=== PATIENT | male | born 1965 | race Caucasian/White ===

== ENCOUNTER 2020-10-23 16:26 | Inpatient (IN) ==
[2020-10-23] MEDS ORDERED: ASPIRIN CHEW 324 MG PO STA (16:39)
[2020-10-23] MEDS ORDERED: NITROGLYCERIN 2% OINTMENT 30GM TUBE EXT STA (16:39)
--- NOTE | 2020-10-23 16:45 | Emergency Department Note ---
History of Present Illness General Chief complaint: Chest Pain Stated complaint: CHEST PAIN Time Seen by Provider: 10/23/20 16:33 Source: patient and family Limitations: language barrier ( is translating from Guinean) History of Present Illness Provider complaint: Chest pain Onset (ago): hour(s) less than 1 Location: chest and left Radiation: other (Jaw) Severity: mild Pain Consistency: + constant Maximum Pain Intensity: 7 Quality: + other (Pressure) Relieved By: + none Exacerbated By: + other (Exertion) Associated symptoms: + nausea/vomiting and + shortness of breath; no cough or no fever/chills This is a 54-year-old male with a history of valvular heart disease presenting with chest discomfort starting 30 minutes prior to arrival. The patient was not doing anything in particular. He developed left-sided chest pressure which radiates into his jaw bilaterally. He states it is mostly gone at this time. He has associated shortness of breath and he did vomit once. He has had similar pain in the past. He had an episode about a month and a half ago with left- sided pain going into his arm but he did not get evaluated for it. He does state that he occasionally gets some slight chest pressure when he lifts things. He denies any fever, cough or cold symptoms, abdominal pain, diarrhea, or urinary symptoms. Home Medications Medication Instructions Recorded Confirmed Type No Known Home Medications 07/23/18 10/23/20 History Allergies Allergy/AdvReac Type Severity Reaction Status Date / Time bee venom protein (honey bee) AdvReac Severe Unknown Verified 10/23/20 16:54 Past Med/Surg History Medical History (Updated 10/23/20 @ 18:39 by Beckie Thapa PA-C) Aortic stenosis due to bicuspid aortic valve Ascending aortic aneurysm 4.5cm in Apr 2020 Hepatitis C Valvular heart disease Surgical History (Updated 10/23/20 @ 18:39 by Beckie Thapa PA-C) H/O eye surgery History of appendectomy Family History (Updated 10/23/20 @ 18:41 by Beckie Thapa PA-C) Other Cancer Diabetes Social History (Updated 10/23/20 @ 18:42 by Beckie Thapa PA-C) Smoking Status: Never smoker Hx Alcohol Use: No Hx Substance Use: No Preferred Language: Guinean Feels Safe at Home: Yes Review of Systems See HPI for pertinent positives & negatives. and A total of 10 systems reviewed and were otherwise negative Physical Exam Vital Signs Vital Signs - 24 hr 10/23/20 16:26 10/23/20 17:00 10/23/20 17:30 Temperature 36.1 C L Temperature Source Temporal Artery Scan Pulse Rate 75 53 L 56 L Pulse Rate [Apical] Pulse Rhythm [Apical] Pulse Strength [Apical] Respiratory Rate 18 14 14 Respiratory Effort / Characteristics Respiratory Depth Blood Pressure 132/87 130/89 138/92 Blood Pressure [Left Arm] Blood Pressure Mean 102 102 107 Blood Pressure Mean [Left Arm] Blood Pressure Position [Left Arm] Pulse Oximetry 98 96 99 Oxygen Delivery Method Room Air Sepsis Recent Fever Within 48 Hours No Sepsis New/Unexplained Change in Mental Status N/A Sepsis Action Taken by Nursing No Action Required 10/23/20 18:00 10/23/20 18:26 10/23/20 18:30 Temperature Temperature Source Pulse Rate 59 L 57 L 61 Pulse Rate [Apical] Pulse Rhythm [Apical] Pulse Strength [Apical] Respiratory Rate 21 14 15 Respiratory Effort / Characteristics Respiratory Depth Blood Pressure 138/88 130/88 127/87 Blood Pressure [Left Arm] Blood Pressure Mean 104 102 100 Blood Pressure Mean [Left Arm] Blood Pressure Position [Left Arm] Pulse Oximetry 98 99 96 Oxygen Delivery Method Sepsis Recent Fever Within 48 Hours Sepsis New/Unexplained Change in Mental Status Sepsis Action Taken by Nursing 10/23/20 19:00 Temperature Temperature Source Pulse Rate Pulse Rate [Apical] 53 L Pulse Rhythm [Apical] Regular Pulse Strength [Apical] Normal Respiratory Rate 20 Respiratory Effort / Characteristics Non-Labored Spontaneous Respiratory Depth Normal Blood Pressure Blood Pressure [Left Arm] 116/82 Blood Pressure Mean Blood Pressure Mean [Left Arm] 93 Blood Pressure Position [Left Arm] Sitting Pulse Oximetry 98 Oxygen Delivery Method Room Air Sepsis Recent Fever Within 48 Hours Sepsis New/Unexplained Change in Mental Status Sepsis Action Taken by Nursing Constitutional: Vital signs reviewed. Eyes: Pupils are equal round reactive to light. Conjunctiva are noninjected. ENT: Pharynx is clear without erythema or exudate. Mucous membranes are moist. Neck supple without meningeal signs. Respiratory: Clear to auscultation bilaterally. Breath sounds are equal bilaterally. Cardiovascular: Regular rate and rhythm. No rubs or gallops. GI: Soft, nondistended and nontender. Bowel sounds are present. Musculoskeletal: No peripheral edema. No lower extremity tenderness. Integumentary: No cyanosis. or jaundice. Neurological: The patient is awake and alert. No focal deficits. Psychiatric: Normal affect. Course Administered Medications Discontinued Medications Acetaminophen (Acetaminophen 325 Mg Tab) 650 mg PO NOW STA Stop: 10/23/20 17:41 Last Admin: 10/23/20 17:43 Dose: 650 mg Documented by: [id number] Aspirin (Aspirin Chew 324 Mg) 324 mg PO NOW STA Stop: 10/23/20 16:40 Last Admin: 10/23/20 17:00 Dose: 324 mg Documented by: [id number] Sodium Chloride (Nss 1000ml) 500 mls @ 999 mls/hr IV .Q31M ONE Stop: 10/23/20 17:31 Last Infusion: 10/23/20 17:38 Dose: 0 mls/hr Documented by: [id number] Admin: 10/23/20 17:06 Dose: 999 mls/hr Documented by: [id number] Nitroglycerin (Nitroglycerin 2% Ointment 30gm Tube) 0.5 inch EXT NOW STA Stop: 10/23/20 16:40 Last Admin: 10/23/20 17:00 Dose: 0.5 inch Documented by: [id number] Ondansetron HCl (Ondansetron Inj 2 Mg/Ml 2 Ml Vial) 4 mg IV NOW STA Stop: 10/23/20 18:36 Last Admin: 10/23/20 19:02 Dose: 4 mg Documented by: [id number] Medical Decision Making Differential Diagnosis Unstable angina, CT, pleurisy, GERD, pneumonia Medical Records Attestation: I reviewed the patient's medical records. I did perform a limited focused review of portions of the patient's old chart on the electronic medical record. The patient has had no recent pertinent visits to this hospital. Home Medications Current Medication List: was personally reviewed by me Laboratory Data Attestation: I reviewed the patient's lab results. Result diagrams: 10/23/20 16:56 10/23/20 16:56 Lab Results 10/23/20 10/23/20 10/23/20 Range/Units 16:56 16:56 16:56 WBC 8.29 (4.8-10.8) K/uL RBC 4.64 L (4.7-6.1) M/uL Hgb 15.3 (14.0-18.0) g/dL Hct 43.3 (42-52) % MCV 93.3 (80-100) fL MCH 33.0 (25-34) pg MCHC 35.3 (32-36) g/dL RDW Std Deviation 44.5 (36.4-46.3) fL RDW Coeff of Dixie 12.9 (11.5-14.5) % Plt Count 199 (130-400) K/uL MPV 9.8 (7.4-10.4) fL Immature Gran % (Auto) 0.1 % Neut % (Auto) 52.2 % Lymph % (Auto) 41.1 % Mckinley % (Auto) 5.7 % Eos % (Auto) 0.7 % Baso % (Auto) 0.2 % Neut # (Auto) 4.32 (1.4-6.5) K/uL Lymph # (Auto) 3.41 H (1.2-3.4) K/uL Mckinley # (Auto) 0.47 (0.11-0.59) K/uL Eos # (Auto) 0.06 (0-0.5) K/uL Baso # (Auto) 0.02 (0-0.2) K/uL Immature Gran # (Auto) 0.01 (0.00-0.02) K/uL Sodium 141 (136-145) mmol/L Potassium 3.8 (3.5-5.1) mmol/L Chloride 108 H (98-107) mmol/L Carbon Dioxide 27 (21-32) mmol/L Anion Gap 7.0 (3-11) BUN 19 H (7-18) mg/dl Creatinine 0.89 (0.6-1.4) mg/dl Est Cr Clr Drug Dosing Not Reportable Est GFR ( Amer) 113.9 ml/min Est GFR (Non-Af Amer) 98.3 ml/min BUN/Creatinine Ratio 21.7 H (10-20) Glucose 98 (70-99) mg/dl Calcium 8.8 (8.5-10.1) mg/dl Total Bilirubin 0.5 (0.2-1) mg/dl AST 15 (15-37) U/L ALT 26 (12-78) U/L Alkaline Phosphatase 66 (45-117) U/L Troponin I < 0.015 (0-0.045) ng/ml Total Protein 7.3 (6.4-8.2) gm/dl Albumin 3.8 (3.4-5.0) gm/dl Globulin 3.5 (2.5-4.0) gm/dl Albumin/Globulin Ratio 1.1 (0.9-2) COVID-19 Eval Order Covid19 at [facility] SARS-CoV-2 (PCR) (Negative) 10/23/20 Range/Units 16:56 WBC (4.8-10.8) K/uL RBC (4.7-6.1) M/uL Hgb (14.0-18.0) g/dL Hct (42-52) % MCV (80-100) fL MCH (25-34) pg MCHC (32-36) g/dL RDW Std Deviation (36.4-46.3) fL RDW Coeff of Dixie (11.5-14.5) % Plt Count (130-400) K/uL MPV (7.4-10.4) fL Immature Gran % (Auto) % Neut % (Auto) % Lymph % (Auto) % Mckinley % (Auto) % Eos % (Auto) % Baso % (Auto) % Neut # (Auto) (1.4-6.5) K/uL Lymph # (Auto) (1.2-3.4) K/uL Mckinley # (Auto) (0.11-0.59) K/uL Eos # (Auto) (0-0.5) K/uL Baso # (Auto) (0-0.2) K/uL Immature Gran # (Auto) (0.00-0.02) K/uL Sodium (136-145) mmol/L Potassium (3.5-5.1) mmol/L Chloride (98-107) mmol/L Carbon Dioxide (21-32) mmol/L Anion Gap (3-11) BUN (7-18) mg/dl Creatinine (0.6-1.4) mg/dl Est Cr Clr Drug Dosing Est GFR ( Amer) ml/min Est GFR (Non-Af Amer) ml/min BUN/Creatinine Ratio (10-20) Glucose (70-99) mg/dl Calcium (8.5-10.1) mg/dl Total Bilirubin (0.2-1) mg/dl AST (15-37) U/L ALT (12-78) U/L Alkaline Phosphatase (45-117) U/L Troponin I (0-0.045) ng/ml Total Protein (6.4-8.2) gm/dl Albumin (3.4-5.0) gm/dl Globulin (2.5-4.0) gm/dl Albumin/Globulin Ratio (0.9-2) COVID-19 Eval Order SARS-CoV-2 (PCR) NEGATIVE (Negative) Imaging Data Attestation: I personally reviewed and interpreted this imaging study as follows: My Impression: Chest x-ray per my interpretation shows no acute cardiopulmonary process. Radiologist's Impression: Chest X-Ray 10/23/20 16:39 SINGLE VIEW CHEST CLINICAL HISTORY: Atypical chest pain. FINDINGS: An AP, portable, upright chest radiograph is obtained. No prior studies are available for comparison at the time of dictation. The heart is top normal for projection. The mediastinal contour is within normal limits. The lungs and pleural spaces are clear. No pneumothorax is seen. The bony thorax is grossly intact. IMPRESSION: No acute cardiopulmonary abnormality. ACT 112: Negative or not required by law. Electronically signed by: Kehinde Remy M.D. 10/23/2020 5:48 PM ECG Data Attestation: I personally reviewed and interpreted this ECG as follows: Indication: + chest pain Rate (beats per minute): 57 Rhythm: + sinus bradycardia ECG [place]: + Normal ECG ST segments: no ST elevation ECG Findings: no PVCs Comparison ECG Date: no prior available Additional Comments: Repeat twelve-lead EKG performed 1658 per my interpretation demonstrates sinus bradycardia at rate of 56 bpm. There is no evidence of acute ST elevation or depression. [place] is normal. No PVCs. No change from prior. MDM Narrative I did evaluate the patient as noted above. Patient is presenting with chest pressure starting 30 minutes prior to arrival. He states he has had similar pressure in the past but has not been evaluated for. He states that he does get it when he exerts himself or lifts things. I did obtain history from the patient via his who is translating from Guinean. IV access was established. I did treat him with aspirin 324 mg p.o. and nitroglycerin paste 0.5 inches to the anterior chest wall. He was given normal saline 500 mL [address] I did place an order for continuous cardiac monitoring. The monitor showed normal sinus rhythm at a rate of 60 bpm. I did order and personally review the patient's 12-lead EKG as described above. He has sinus bradycardia but no acute ischemia. I did repeat another EKG approximately half hour later and there was no significant change as noted above. I did order and personally reviewed the images of the patient's chest x-ray as described above. Chest x-ray is unremarkable. I did order and review the patient's blood work as noted in the electronic medical record. CBC is unremarkable without leukocytosis or anemia. Electrolytes demonstrate a chloride of 108. Troponin is negative. I did reassess the patient. His chest pressure is now relieved. He does complain of a headache from the nitroglycerin. He was given Tylenol. I did discuss the test results with the patient and his . He will be hospitalized for further care and evaluation and repeat cardiac biomarkers. I did discuss the case with the hospitalist and case reviewer. Impression & Plan Chest pain Discharge Plan Visit Data Chief Complaint: Chest Pain Stated Complaint: CHEST PAIN ED Provider: Mickey Tapia Discharge Problem: Chest pain Patient Disposition: Being Evaluated by Hospitalist Forms Stand Alone Forms: TRUE linkswear Prescriptions Prescriptions: No Action No Known Home Medications RF: 0 Referrals Referrals: PCP,NO [Primary Care Provider] - Discharge Problem: Chest pain Qualifiers: Chest pain type: unspecified Qualified Code(s): R07.9 - Chest pain, unspecified
[2020-10-23] MEDS ORDERED: SODIUM CHLORIDE 0.9% 1000ML 500 ML IV ONE (17:01)
[2020-10-23 17:08] LABS: Basophils # (auto) 0.02 K/uL (0-0.2); Basophils % (auto) 0.2 %; Eosinophils # (auto) 0.06 K/uL (0-0.5); Eosinophils % (auto) 0.7 %; Hematocrit (blood only) 43.3 % (42-52); Hemoglobin 15.3 g/dL (14.0-18.0); Immature Granulocytes # (auto) 0.01 K/uL (0.00-0.02); Immature Granulocytes % (auto) 0.1 %; Lymphocytes # (auto) 3.41 K/uL (1.2-3.4); Lymphocytes % (auto) 41.1 %; Mean Corpuscular Hgb Conc 35.3 g/dL (32-36); Mean Corpuscular Volume 93.3 fL (80-100); Mean Platelet Volume 9.8 fL (7.4-10.4); Monocytes # (auto) 0.47 K/uL (0.11-0.59); Monocytes % (auto) 5.7 %; Neutrophils # (auto) 4.32 K/uL (1.4-6.5); Neutrophils % (auto) 52.2 %; Platelet Count 199 K/uL (130-400); RDW Coefficient of Variation 12.9 % (11.5-14.5); RDW Standard Deviation 44.5 fL (36.4-46.3); Red Blood Count 4.64 M/uL (4.7-6.1); White Blood Count 8.29 K/uL (4.8-10.8)
[2020-10-23 17:26] LABS: Alanine Aminotransferase 26 U/L (12-78); Albumin Level 3.8 gm/dl (3.4-5.0); Aspartate Aminotransferase 15 U/L (15-37); BUN Creatinine Ratio 21.7 (10-20); Blood Urea Nitrogen 19 mg/dl (7-18); Calcium 8.8 mg/dl (8.5-10.1); Carbon Dioxide 27 mmol/L (21-32); Chloride 108 mmol/L (98-107); Est GFR (African American) 113.9 ml/min; Est GFR (Non-African American) 98.3 ml/min; Glucose 98 mg/dl (70-99); Potassium 3.8 mmol/L (3.5-5.1); Sodium 141 mmol/L (136-145)
[2020-10-23 17:31] LABS: Albumin Globulin Ratio 1.1 (0.9-2); Alkaline Phosphatase 66 U/L (45-117); Bilirubin,Total 0.5 mg/dl (0.2-1); Globulin 3.5 gm/dl (2.5-4.0); Total Protein 7.3 gm/dl (6.4-8.2); Troponin I < 0.015 ng/ml (0-0.045)
[2020-10-23] MEDS ORDERED: ACETAMINOPHEN 325 MG TAB PO STA (17:40)
--- NOTE | 2020-10-23 17:49 | XRay Report ---
SINGLE VIEW CHEST CLINICAL HISTORY: Atypical chest pain. FINDINGS: An AP, portable, upright chest radiograph is obtained. No prior studies are available for c omparison at the time of dictation. The heart is top normal for projection. The mediastinal contour is within normal limits. The lungs and pleural spaces are clear. No pneumothorax is seen. The bony th orax is grossly intact. IMPRESSION: No acute cardiopulmonary abnormality. ACT 112: Negative or not required by law. Electronically signed by: Kehinde Remy M.D. 10/23/2020 5:48 PM
[2020-10-23] MEDS ORDERED: ONDANSETRON INJ 2 MG/ML 2 ML VIAL IV STA (18:35)
[2020-10-23] MEDS ORDERED: OPTIRAY 320 125ml IV ONE (19:30)
--- NOTE | 2020-10-23 19:45 | CT Scan Report ---
CT ANGIOGRAM OF THE CHEST CLINICAL HISTORY: Atypical chest pain. COMPARISON STUDY: Chest x-ray dated 10/23/2020. TECHNIQUE: Following the IV administration of 120 cc of Optiray 320, CT angiogram of the chest was pe rformed from the thoracic inlet to the upper abdomen utilizing the dissection protocol. Images are re viewed in the axial, sagittal, and coronal planes. 3-D MIPS images are created and assessed. IV contr ast was administered without complication. A dose lowering technique was utilized adhering to the pr inciples of ALARA. CT DOSE: 573.13 mGy.cm FINDINGS: Thyroid: Imaged portions of the thyroid gland are normal in size and attenuation. Thoracic aorta: There is mild aneurysmal dilatation of the ascending thoracic aorta which measures up to 4.2 cm in diameter. The remainder of the thoracic aorta is normal in caliber, and the arch demons trates standard 3-vessel anatomy. No dissection is seen. The arch vessels are widely patent. Pulmonary vasculature: The pulmonary trunk is normal in caliber. There are no filling defects within the main, lobar, or segmental pulmonary arteries to suggest pulmonary embolus. Heart: The heart is top normal in size and without pericardial effusion. Lungs and pleural spaces: Evaluation of the lung parenchyma is modestly degraded by motion artifact. There is no airspace consolidation or pleural effusion. Atelectasis is seen at the lung bases. The tr achea and central airways are clear. Mediastinum: There is no mediastinal lymphadenopathy. Pati: Clear. Axillae: There is no axillary lymphadenopathy. Upper abdomen: There is a tiny hiatal hernia. Partially visualized upper abdominal viscera is within normal limits. Skeletal structures: No lytic or blastic bony lesions are seen. IMPRESSION: 1. There is mild aneurysmal dilatation of the ascending thoracic aorta which measures up to 4.2 cm in diameter. 2. No dissection is seen. 3. There is no evidence of pulmonary embolus in the main, lobar, or segmental pulmonary arteries. 4. There is no airspace consolidation or pleural effusion. 5. Additional findings as above. ACT 112: Negative or not required by law. Electronically signed by: Kehinde Remy M.D. 10/23/2020 7:44 PM
[2020-10-23] MEDS ORDERED: ONDANSETRON INJ 2 MG/ML 2 ML VIAL IV PRN (19:55)
[2020-10-23] MEDS ORDERED: POLYETHYLENE (MIRALAX) 17 GM PACK PO PRN (19:55)
[2020-10-23] MEDS ORDERED: NITROGLYCERIN SL 0.4 MG/TAB TAB SL PRN (19:55)
[2020-10-23] MEDS ORDERED: ACETAMINOPHEN 325 MG TAB PO PRN (19:55)
--- NOTE | 2020-10-23 20:28 | History & Physical Report ---
Date of Service October 23, 2020 Assessment & Plan (1) Chest pain: (2) Ascending aortic aneurysm: Plan: #. Chest pain rule out ACS Chief complaint was chest heaviness waking him up from sleep in the afternoon. He had similar complaints in the past which would worsen with exertion. Likely unstable angina secondary to noncompliance. Admitting EKG showed sinus bradycardia with heart rate in 57, troponin x1 was negative Trend the troponin, EKG in a.m. or with chest pain/heaviness Discussed with cardiology: CT chest sent to rule out PE/aortic dissection--> came back negative. We will put him on aspirin daily and Zofran as needed N.p.o. midnight #. History of ascending aortic aneurysm/bicuspid aortic valve April echo showed mild to moderate stenosis of calcified bicuspid aortic valve. Follow-up with echo results. Cardiology on board. Admission and Anticipated Discharge Date Admission Date: October 23, 2020 History of Present Illness Chief Complaint: chest heaviness x afternoon Primary Care Provider: NO PCP 54-year-old gentleman with PMH of unstable angina [prescribed aspirin, not taking it], ascending aortic aneurysm [4.5 cm April 2020], bicuspid aortic valve x calcified, and hepatitis C status post treatment came in 10/23 to ED with complaint of chest heaviness. Per patient, he woke up around 4 PM with chest heaviness with some chest pain, 8-9 out of 10 intensity, associated with left forearm and hand numbness, associated with nausea/vomiting [2 times]. He states that his pain slowly subsided with good relief after nitroglycerin in the ED. At bedside, his chest heaviness was 0/10. Patient also complains of having similar symptoms in the past since last 3 to 4 years. The frequency has increased lately to once every 2 months. He has been diagnosed with unstable angina in the past and was prescribed aspirin with he has not taken. His echo in April 2020 showed ejection fraction of 60 to 65% with bicuspid aortic valve showing mild to moderate aortic stenosis. Per patient, he does not smoke tobacco, drink alcohol and use illegal drugs/marijuana. He is full code. Family history positive for GI malignancy. In the ED, he received nitro patch, aspirin 324 mg, Tylenol, Zofran. Allergies Allergy/AdvReac Type Severity Reaction Status Date / Time bee venom protein (honey bee) AdvReac Severe Unknown Verified 10/23/20 16:54 Home Medications Medication Instructions Recorded Confirmed Type No Known Home Medications 07/23/18 10/23/20 History Past Med/Surg History Medical History (Updated 10/23/20 @ 18:39 by Beckie Thapa PA-C) Aortic stenosis due to bicuspid aortic valve Ascending aortic aneurysm 4.5cm in Apr 2020 Hepatitis C Valvular heart disease Surgical History (Updated 10/23/20 @ 18:39 by Beckie Thapa PA-C) H/O eye surgery History of appendectomy Family History (Updated 10/23/20 @ 18:41 by Beckie Thapa PA-C) Other Cancer Diabetes Social History (Updated 10/23/20 @ 18:42 by eBckie Thapa PA-C) Smoking Status: Never smoker Hx Alcohol Use: No Hx Substance Use: No Preferred Language: Angolan Communication Ability: Effective [employer] Required: Yes Beliefs That Will Affect Care: None Current Living Situation: Spouse Other Information That Helps Us Care for You: No Feels Safe at Home: Yes Safety Concerns: Feels Safe At This Time Review of Systems Review of Systems: REVIEW OF SYSTEMS: All 10 ROS were reviewed and negative unless mentioned otherwise in the HPI. No headache, fever, chills, sore throat, feeling of heart racing, belly pain, acute changes in bowel or bladder habits lately, bilateral lower leg swelling, skin rashes, bleeding anywhere in the body. Patient complaints being sick at his stomach on and off with chest heaviness associated with nausea and vomitin.g Physical Exam Physical Exam: GENERAL: Alert and oriented x3. NAD, on RA. HEENT: No pallor, no icterus. Pupils equal, round and reactive to light. Oral mucosa moist. NECK: No JVD, no neck masses. HEART: S1 and S2 heard. Regular rate and rhythm. Midsystolic murmur 3/6 over aortic and pulmonic area, no gallop. RESPIRATORY SYSTEM: Normal AP diameter. No accessory muscle use. No wheezing, no crackles. ABDOMEN: Soft, bowel sounds present, nontender, no distention. CENTRAL NERVOUS SYSTEM: Alert and oriented x3. No facial droop. Speech is clear. Obeys simple commands. Moves extremities. EXTREMITIES: No edema, no erythema seen. Results & Data Results & Data ([facility]) Vital Signs (Past 12 Hours) Vital Signs Temp Pulse Pulse Resp BP BP Pulse Ox 10/23/20 19:45 18 119/76 93 10/23/20 19:00 53 L 20 116/82 98 10/23/20 18:30 61 15 127/87 96 10/23/20 18:26 57 L 14 130/88 99 10/23/20 18:00 59 L 21 138/88 98 10/23/20 17:30 56 L 14 138/92 99 10/23/20 17:00 53 L 14 130/89 96 10/23/20 16:26 36.1 C L 75 18 132/87 98 (1) Chest pain Chest pain type: unspecified Qualified Code(s): R07.9 - Chest pain, unspecified
[2020-10-23] MEDS: HEPARIN SOD 5,000 UNIT/0.5 ML VIAL SQ SCH (23:25)
[2020-10-24 06:39] LABS: Mean Corpuscular Hemoglobin 32.5 pg (25-34); Mean Corpuscular Volume 92.8 fL (80-100); Platelet Count 180 K/uL (130-400); RDW Coefficient of Variation 12.9 % (11.5-14.5); RDW Standard Deviation 44.2 fL (36.4-46.3); Red Blood Count 4.31 M/uL (4.7-6.1); White Blood Count 8.15 K/uL (4.8-10.8)
[2020-10-24 07:15] LABS: BUN Creatinine Ratio 21.3 (10-20); Blood Urea Nitrogen 15 mg/dl (7-18); Calcium 8.3 mg/dl (8.5-10.1); Carbon Dioxide 25 mmol/L (21-32); Chloride 110 mmol/L (98-107); Creatinine Clr Calc Pharmacy 147.9 ml/min; Est GFR (African American) 123.6 ml/min; Est GFR (Non-African American) 106.6 ml/min; Glucose 102 mg/dl (70-99); Potassium 3.8 mmol/L (3.5-5.1); Sodium 140 mmol/L (136-145)
[2020-10-24 07:20] LABS: Chol HDL Ratio 5; Cholesterol 188 mg/dl (0-200); HDL Cholesterol 40 mg/dl; LDL Cholesterol Calculated 128 mg/dl; Triglycerides 102 mg/dl (0-150); Troponin I < 0.015 ng/ml (0-0.045); VLDL Cholesterol 20 mg/dl
[2020-10-24 08:00] LABS: Estimated Average Glucose 117 mg/dl; Hemoglobin A1C 5.7 % (4.5-5.6)
[2020-10-24] MEDS: HEPARIN SOD 5,000 UNIT/0.5 ML VIAL SQ SCH ×2 (08:34→12:27)
[2020-10-24] MEDS: ASPIRIN 81 MG ECTAB PO SCH (09:19)
[2020-10-24] MEDS ORDERED: MECLIZINE 12.5 MG TAB PO PRN (09:38)
--- NOTE | 2020-10-24 10:16 | CT Scan Report ---
CT SCAN OF THE BRAIN WITHOUT IV CONTRAST CLINICAL HISTORY: Headache and dizziness. COMPARISON STUDY: No priors. TECHNIQUE: Unenhanced axial CT scan of the brain is performed from the vertex to the skull base. A d ose lowering technique was utilized adhering to the principles of ALARA. CT DOSE: 537.48 mGy.cm FINDINGS: Brain parenchyma: The brain parenchyma is normal in appearance. There is no hemorrhage, mass effect, or evidence of acute territorial ischemia by CT criteria. Hooper-white matter differentiation is preser harman. No extra-axial fluid collection is seen. Ventricles, sulci, cisterns: Normal in configuration. Intracranial vasculature: The visualized intracranial vasculature at the skull base is normal in appe arance. Calvarium: Unremarkable. Sinuses and mastoids: The visualized paranasal sinuses are clear. There is trace left mastoid effusio n. The right mastoid air cells are well pneumatized. Orbits: The bony orbits are grossly intact. IMPRESSION: No acute intracranial abnormality. ACT 112: Negative or not required by law. Electronically signed by: Kehinde Remy M.D. 10/24/2020 10:15 AM
--- NOTE | 2020-10-24 10:17 | Hospitalist Progress Note ---
Date of Service October 24, 2020 Assessment & Plan (1) Chest pain: Plan: Chest pain Possible Unstable Angina ACS ruled out --- troponin x 3 negative EKG no signs of acute ischemia, (+) sinus rudolph Echo pending -- Presales Engineer consulted -- CT chest: no PE, Dissection ESR, CRP: pending Dizziness, possible Vertigo -- CT head: pending -- PRN Meclizine IV NSS -- PT ordered for Midland-Hallpike test History of AAA -- CT chest no dissection Bicuspid AV -- Echo pending History of Hep C Disposition pending plan of care discussed with patient and his Veronica at the bedside in detail and at length all questions answered they are understanding, agreeable, comfortable with the plan of care Admission and Anticipated Discharge Date Admission Date: October 23, 2020 Subjective ff up for chest pain, etc seen resting in bed, not in distress reports left sided chest pain- sharp with inspiration and movement also reports dizziness with head movement and when ambulating- reminiscent of intermittent episode of dizziness in the past- "room spinning" associated with nausea also has bitemporal headache-mild to moderate no other symptoms Review of Systems Review of Systems: all noted and negative except for above Physical Exam Physical Exam: General- oriented x 3, not in distress, speaks in sentences with no effort or accessory muscle use Head- atraumatic Eyes- PERRL, EOMI, anicteric ENT- oropharynx clear Neck- supple, no JVD, no adenopathy, no thyromegaly; carotids +2/2, no bruits appreciated Lungs- clear to auscultation bilaterally, no rales/wheezes Heart- normal rate, regular rhythm; no murmur, no gallop, no rub appreciated (+) tenderness to palpation of Left parasternal border Abdomen- normal bowel sounds, nondistended, soft, nontender, no masses or hepatosplenomegaly Extremities- no pretibial edema, no calf tenderness; peripheral pulses intact Neuro- alert, oriented x 3; CN 2-12 grossly intact; motor 5/5 moustapha aterally;sensation 100% on all extremities; no other gross focal neurologic deficits Skin- warm & dry Results & Data Results & Data ([facility]) Vital Signs (Past 12 Hours) Vital Signs Temp Pulse Pulse Resp BP Pulse Ox 10/24/20 10:01 62 10/24/20 07:15 36.7 C 57 L 18 114/67 97 10/24/20 03:17 36.6 C 60 18 105/59 L 97 10/24/20 00:00 90 10/23/20 23:15 36.5 C 89 18 116/57 L 95 all noted and reviewed including below (1) Chest pain Chest pain type: unspecified Qualified Code(s): R07.9 - Chest pain, unspecified
--- NOTE | 2020-10-24 12:18 | Pre Anesthesia Assessment ---
Date of Service October 24, 2020 Pre Sedation Assessment Vital Signs Temp Pulse Pulse Resp BP BP Pulse Ox 10/24/20 11:00 36.5 C 56 L 17 108/67 98 10/24/20 10:01 62 10/24/20 07:15 36.7 C 57 L 18 114/67 97 10/24/20 03:17 36.6 C 60 18 105/59 L 97 10/24/20 00:00 90 10/23/20 23:15 36.5 C 89 18 116/57 L 95 10/23/20 19:45 18 119/76 93 10/23/20 19:00 53 L 20 116/82 98 10/23/20 18:30 61 15 127/87 96 10/23/20 18:26 57 L 14 130/88 99 10/23/20 18:00 59 L 21 138/88 98 10/23/20 17:30 56 L 14 138/92 99 10/23/20 17:00 53 L 14 130/89 96 10/23/20 16:26 36.1 C L 75 18 132/87 98 Cardiovascular + regular rate Respiratory + respiratory effort normal Pre-Sedation Airway Assessment Smoking Status: Never smoker Hx Sleep Apnea: No Hx Difficult Intubation: No Short, Thick Neck: No Thyromental Distance: > or= 3.5 Finger Breadths Oral Cavity: + WNL Mallampati Class: III ASA: ASA3 Procedure Planning Contraindications for Sedation: none Current Medications Reviewed: Yes Notes The planned sedation has been discussed with the patient. Informed Consent was obtained. I have identified the patient, determined the appropriateness of sedation and have assessed the patient immediately prior to the procedure. All medicine(s) and interventions are by my order.
[2020-10-24] MEDS: NSS + 20MEQ KCL 20 MEQ/1,000 ML BAG IV SCH (12:19)
--- NOTE | 2020-10-24 12:25 | Cardiology Consultation ---
Date of Consultation October 24, 2020 Assessment & Plan (1) Chest pain: (2) Aortic stenosis due to bicuspid aortic valve: (3) Ascending aortic aneurysm: His initial work-up was unremarkable, however, there is subtle wall motion abnormalities on his resting echocardiogram. Given his recurrent episodes of chest discomfort and the echocardiographic findings I believe the most prudent course of action would be to proceed with cardiac catheterization for direct visualization of his anatomy. The patient and his both state that they understand and they are in agreement with this plan and wished to proceed. The risks, benefits and alternatives were discussed with him. Dr. Larsen was kind enough to agree to take him to the lab. Further recommendations to follow. History of Present Illness Reason for Consultation: Chest pain Requesting Physician: Dr. Simeon Attending Physician: Oseas Jackson MD History of Present Illness The patient is a pleasant 54-year-old Palauan-speaking only gentleman who follows with myself as an outpatient. He presented to [facility] on 10/23/2020 with complaints of chest discomfort. He prefers that his acts as lang interpreter. He states that yesterday afternoon he was not feeling well and went to lay down. He states he was nauseous and developed a headache. At the same time he became diaphoretic and short of breath. Along with this he developed chest discomfort. He described the discomfort as a pressure sensation as a heavy weight sitting on his chest. He denied any radiation of the discomfort. He states that the discomfort persisted for several hours before his was able to convince him to come in the emergency department. Upon arrival initial work-up was unremarkable and his chest discomfort was relieved with nitroglycerin. He is not had any further discomfort overnight. PAST MEDICAL HISTORY: 1. Bicuspid aortic valve with moderate stenosis 2. Ascending aortic aneurysm measuring 4.5 cm 3. History of hepatitis C status post antiviral drug therapy Allergies Allergy/AdvReac Type Severity Reaction Status Date / Time bee venom protein (honey bee) AdvReac Severe Unknown Verified 10/23/20 16:54 Home Medications Medication Instructions Recorded Confirmed Type No Known Home Medications 07/23/18 10/23/20 History Patient History Medical History Aortic stenosis due to bicuspid aortic valve Ascending aortic aneurysm 4.5cm in Apr 2020 Hepatitis C Valvular heart disease Surgical History H/O eye surgery History of appendectomy Family History Other Cancer Diabetes Social History Smoking Status: Never smoker Hx Alcohol Use: No Hx Substance Use: No Preferred Language: Palauan Communication Ability: Effective Communication Tools: IPad Electric Wirer Required: Yes Beliefs That Will Affect Care: None Current Living Situation: Spouse Other Information That Helps Us Care for You: No Feels Safe at Home: Yes Safety Concerns: Feels Safe At This Time Assistive Devices: None Review of Systems Review of Systems: All systems reviewed & are unremarkable except as noted in HPI & below Physical Exam Physical Exam: General: Awake, alert and oriented x 3. No acute distress. HEENT: Normocephalic, atraumatic. Pupils equal, round and reactive to light and accommodation. Extraocular muscles are intact. Anicteric sclera. Moist mucous membranes. Neck: No JVD. No bruit. Cardiovascular: Regular. Positive S-4. Normal S-1 and S-2. No S-3. 3/6 mid to late systolic ejection murmur, greatest at the right sternal border, second intercostal space with radiation to the bilateral carotids. No rubs. Pulmonary: Clear to auscultation bilaterally. No rales, rhonchi, or wheezing. Abdomen: Bowel sounds x 4, soft. No rebound, guarding or tenderness. No organomegaly. Extremities: No clubbing, cyanosis or edema. +2 pedal pulses bilaterally. Skin: Warm and dry. Results & Data ([facility]) Vital Signs (Past 12 Hours) Vital Signs Temp Pulse Pulse Resp BP Pulse Ox 10/24/20 11:00 36.5 C 56 L 17 108/67 98 10/24/20 10:01 62 10/24/20 07:15 36.7 C 57 L 18 114/67 97 10/24/20 03:17 36.6 C 60 18 105/59 L 97 (1) Chest pain Chest pain type: unspecified Qualified Code(s): R07.9 - Chest pain, unspecified
[2020-10-24] MEDS ORDERED: HEPARIN (PORCINE) 1000 UNIT/ML 10 ML (CATH LAB USE ONLY) ONE (13:05)
[2020-10-24] MEDS ORDERED: niCARdipine HCL INJ 2.5 MG/ML 10 ML AMP ONE (13:05)
[2020-10-24] MEDS ORDERED: NITROGLYCERIN/D5W 100MCG/ML 20ML SYR ONE (13:06)
[2020-10-24] MEDS ORDERED: MIDAZOLAM HCL 1 MG/ML 2ML VIAL ONE (13:06)
[2020-10-24] MEDS ORDERED: fentaNYL citrate 100 MCG/2 ML VIAL ONE (13:06)
--- NOTE | 2020-10-24 13:33 | Post Anesthesia Assessment ---
Date of Service October 24, 2020 Post Sedation Assessment Vital Signs Temp Pulse Pulse Resp BP BP Pulse Ox 10/24/20 11:00 36.5 C 56 L 17 108/67 98 10/24/20 10:01 62 10/24/20 07:15 36.7 C 57 L 18 114/67 97 10/24/20 03:17 36.6 C 60 18 105/59 L 97 10/24/20 00:00 90 10/23/20 23:15 36.5 C 89 18 116/57 L 95 10/23/20 19:45 18 119/76 93 10/23/20 19:00 53 L 20 116/82 98 10/23/20 18:30 61 15 127/87 96 10/23/20 18:26 57 L 14 130/88 99 10/23/20 18:00 59 L 21 138/88 98 10/23/20 17:30 56 L 14 138/92 99 10/23/20 17:00 53 L 14 130/89 96 10/23/20 16:26 36.1 C L 75 18 132/87 98 Recovery Score Activity: Moves 4 extremities Respiration: Deep Breath/Cough Circulation: +/-20% PreAnes Value Consciousness: Fully Awake Oxygen Saturation: > 92% On Room Air Discharge Sedation Level of Care: Fast Track Phase II Post Sedation Plan On clinical assessment, the patient appears to have tolerated the sedation without complications. Patient is recovering as anticipated. Patient will continue to be monitored by nursing and may be discharged when sedation discharge criteria are met per below protocol. Upon Completions of procedure up to 15 minutes continue every 5 minute vital signs and the P.A.R. score; then discharge to a Phase I or Fast Track to Phase II per the following guidelines: * Discharge Patient to appropriate Phase II area if PAR is 8 or greater or return to pre- procedure baseline. The post - procedure orders will be as directed. * If PAR score is less than 8 or not return to pre-procedure baseline then patient will follow Phase I monitoring till PAR is reached for Phase II. The Phase I may be done in procedure room or may call to secure a Phase I area. * If naloxone or flumazenil are used for reversal, hold in Phase I for continued monitoring from when last reversal dose was given for a minimum of 60 minutes or longer pending the nurse and/or physician discretion of patient condition before discharge to Phase II. Please call the Sedation Physician to re-evaluate and complete post-note for discharge to Phase II area. Do NOT discharge from procedure sedation or Phase 1 until post- sedation evaluation note is complete by procedure /sedation MD Sedation Discharge Instructions to be given to the patient at discharge to home.
--- NOTE | 2020-10-24 13:42 | Cardiac Catheterization ---
[facility] Data: Manager Mission Cardiac Status Clinical evaluation leading to the procedure CAD Presenation: Unstable angina Diagnostic Physicians Name: Param Larsen MD Closure Device Recommendations: Medical Therapy and/or Counseling Cardiac Cath Procedure Full Procedure Date October 24, 2020 Pre-Procedure Diagnosis Pre-Procedure Diagnosis: Angina AUC Score AUC Score: 7 Post-Procedure Diagnosis Post-Procedure Diagnosis: Mild CAD Procedure(s) Performed Procedure(s) Performed: Coronary Angiography and Left Heart Cath Cook Night Param Larsen MD Director Of Global Marketing(s) none Estimated Blood Loss Estimated Blood Loss: 7cc Medication(s) Medication(s): Fentanyl, Heparin, Lidocaine 1%, Nicardipine, Nitroglycerin and Versed Summary of Findings Procedure performed: Left heart catheterization, selective coronary angiography Staff silver wrapper: Param Larsen MD Indication: The patient is a 54-year-old gentleman with a history of chest discomfort relieved with nitroglycerin. Procedure in detail The patient was informed the risk benefits and alternatives to the intended procedure. He speaks limited Tristanian and this was facilitated using a proprietary clinical laboratory aides teacher. He understood and wished to proceed. He was taken to the cardiac catheterization suite in a fasting state. Conscious sedation was administered per protocol and the patient was monitored electrocardiographically throughout today's procedure. The right radial area was prepped and draped in usual sterile fashion. This area was anesthetized using subcutaneous ministration of lidocaine solution. Right radial artery was subsequently accessed using Seldinger technique and a sheath was placed over guidewire at this site. The sheath was used to facilitate passage of the cardiac catheter for selective coronary angiography and left heart catheterization. Images were obtained in multiple orthogonal views prior to removal of the catheter and sheath. Hemostasis was achieved at the access site using manual pressure. The patient tolerated procedure well. There were no immediate complications. Equipment used: 5 [place] 4 Findings: Selective coronary angiography Left main: Left main coronary artery was normal in size and caliber and bifurcated normally into left anterior descending and left circumflex arteries Left anterior descending colon left anterior descending was a large transapical vessel. It produced a very high first diagonal/ramus intermedius. This was a medium sized vessel without significant disease. The second diagonal branch had approximately 50% stenosis at its ostium but was otherwise free of disease. Left circumflex: Left circumflex was a large codominant vessel. It produced a large first OM, a small OM 2, a medium OM 3 and 2 additional diminutive OM branches. There is no significant disease in this distribution. Right coronary artery: The right coronary artery was a relatively small vessel. It produced a medium size PDA and PLB branch. There was no disease in this distribution. Impression: Codominant coronary system Nonobstructive disease involving D2 Normal left ventricular filling pressure 15 to 20 mm gradient across the aortic valve Hemodynamics Rest Ao:: 94/61 mmHg Final Ao: 97/64 mmHg LV: 112/0 mmHg Left ventricular end-diastolic pressure was 5 mmHg Recommendations Recommendations: Medical Therapy and/or Counseling Specimens Specimens: None Radiation Exposure (mGy) 883 Contrast (mls) 60 Procedural Complication(s) None Disposition Manager [employer]/Recovery I attest to the content of the Intraoperative Record and any orders documented therein. Any exceptions are noted below. [facility] Card Cath Procedure Codes Cardiac Catheterization Procedure 1: Cardiovascular Cath Procedures: 81019 Coronaries and LHC (+/-LV) Moderate Sedation Procedure 1: Sedation/Anesthesia: 03345 Mod Sedation by the same physician;Init15 Min Child Age 5 & Up PG Care Time/CCT Total # of Minutes Spent Total Time Spent with Patient: Total time spent is greater than 50% in coordination of care (as documented) at patient's floor/unit and/or counseling patient:
--- NOTE | 2020-10-24 17:35 | Electrocardiogram Report ---
Test Reason : Blood Pressure : / mmHG Vent. Rate : 056 BPM Atrial Rate : 056 BPM P-R Int : 178 ms QRS Dur : 104 ms QT Int : 456 ms P-R-T Axes : 049 007 043 degrees QTc Int : 440 ms Sinus bradycardia Otherwise normal ECG When compared with ECG of 23-OCT-2020 16:30, (unconfirmed) No significant change was found Confirmed by Param Larsen ([id number]) on 10/24/2020 5:34:48 PM Referred By: REFERRED SELF Confirmed By:Zach Larsen
--- NOTE | 2020-10-24 17:35 | Electrocardiogram Report ---
Test Reason : Blood Pressure : / mmHG Vent. Rate : 057 BPM Atrial Rate : 057 BPM P-R Int : 172 ms QRS Dur : 106 ms QT Int : 438 ms P-R-T Axes : 051 032 039 degrees QTc Int : 426 ms Sinus bradycardia Otherwise normal ECG No previous ECGs available Confirmed by Param Larsen ([id number]) on 10/24/2020 5:35:01 PM Referred By: REFERRED SELF Confirmed By:Zach Larsen
--- NOTE | 2020-10-24 18:07 | Electrocardiogram Report ---
Test Reason : Blood Pressure : / mmHG Vent. Rate : 061 BPM Atrial Rate : 061 BPM P-R Int : 178 ms QRS Dur : 106 ms QT Int : 420 ms P-R-T Axes : 051 004 018 degrees QTc Int : 422 ms Normal sinus rhythm Normal ECG When compared with ECG of 23-OCT-2020 16:59, (unconfirmed) No significant change was found Confirmed by Param Larsen ([id number]) on 10/24/2020 6:07:20 PM Referred By: REFERRED SELF Confirmed By:Zach Larsen
[2020-10-25] MEDS: NSS + 20MEQ KCL 20 MEQ/1,000 ML BAG IV SCH (00:20)
[2020-10-25 06:48] LABS: Hematocrit (blood only) 40.8 % (42-52); Hemoglobin 14.3 g/dL (14.0-18.0); Mean Corpuscular Hemoglobin 32.6 pg (25-34); Mean Corpuscular Volume 93.2 fL (80-100); Platelet Count 178 K/uL (130-400); RDW Coefficient of Variation 12.7 % (11.5-14.5); RDW Standard Deviation 42.9 fL (36.4-46.3); Red Blood Count 4.38 M/uL (4.7-6.1); White Blood Count 6.46 K/uL (4.8-10.8)
[2020-10-25 07:22] LABS: BUN Creatinine Ratio 17.8 (10-20); Calcium 8.2 mg/dl (8.5-10.1); Creatinine Clr Calc Pharmacy 131.3 ml/min; Est GFR (African American) 117.8 ml/min; Est GFR (Non-African American) 101.7 ml/min
[2020-10-25] MEDS: ASPIRIN 81 MG ECTAB PO SCH (09:29)
--- NOTE | 2020-10-25 10:19 | Hospitalist Progress Note ---
Date of Service October 25, 2020 Assessment & Plan (1) Chest pain: Plan: Chest pain likely musculoskeletal etiology ACS ruled out --- troponin x 3 negative EKG no signs of acute ischemia, (+) sinus rudolph Echo: mild concentric LVH, EF 50-55%, grade 2 diastolic dysfunction, congenital bicuspid aortic valve, mild to moderate hypokinesis of the mid to apical anteroseptal wall, moderate aortic stenosis -- Fretted Instrument Repairer consulted- Dr. Dorsey: Cardiac cath revealed normal coronary arteries. No cardiac source for chest pain found. s/p Cardiac cath 10/24/20 Codominant coronary system Nonobstructive disease involving D2 Normal left ventricular filling pressure 15 to 20 mm gradient across the aortic valve -- CT chest: no PE, Dissection ESR, CRP:normal -- chest pain reproducible on palpation -- d/c home with Aspirin 81mg daily ff up with Fretted Instrument Repairer for bicurpis aortic valve Dizziness, possible Vertigo -- occurs suddenly, occasionally associated with visual disturbance -- CT head: no acute abnormalities -- while admitted, relieved with PRN Meclizine -- PT ordered for Marina-Hallpike test: negative -- continue PRN Meclizine ff up with ENT possible referral to Neurologist History of AAA -- CT chest no dissection Congenital Bicuspid AV -- as per above History of Hep C Disposition d/c home ff up with PCP refer to ENT plan of care discussed with patient and his Veronica at the bedside in detail and at length all questions answered they are understanding, agreeable, comfortable with the plan of care Admission and Anticipated Discharge Date Admission Date: October 24, 2020 Subjective ff up for chest pain, etc seen sitting up at the edge of the bed, comfortable in good spirits states he feels better today no chest pain since yesterday afternoon dizziness has resolved, no nausea denies dyspnea, palpitations, abdominal pain no focal neurologic symptoms no other symptoms states he is ready and would like to be discharged today Review of Systems Review of Systems: all noted and negative except for above Physical Exam Physical Exam: General- oriented x 3, not in distress, speaks in sentences with no effort or accessory muscle use Eyes- anicteric Neck- no JVD Lungs- clear breath sounds bilaterally, no rales/wheezes Heart- normal rate, regular rhythm; no murmurs Abdomen- normal bowel sounds, nondistended, soft, nontender Extremities- no pretibial edema, no calf tenderness Neuro- alert, oriented x 3; no gross focal neurologic deficits Skin- warm & dry Results & Data Results & Data ([facility]) Vital Signs (Past 12 Hours) Vital Signs Temp Pulse Pulse Resp BP Pulse Ox 10/25/20 07:43 61 10/25/20 07:37 36.8 C 60 16 115/67 97 10/25/20 03:51 36.4 C L 60 18 148/100 H 96 10/24/20 23:25 36.8 C 66 18 127/86 96 all noted and reviewed including below (1) Chest pain Chest pain type: unspecified Qualified Code(s): R07.9 - Chest pain, unspecified
--- NOTE | 2020-10-25 10:41 | Discharge Summary ---
Date of Service October 25, 2020 Admission HPI Per Admitting Provider 54-year-old gentleman with PMH of unstable angina [prescribed aspirin, not taking it], ascending aortic aneurysm [4.5 cm April 2020], bicuspid aortic valve x calcified, and hepatitis C status post treatment came in 10/23 to ED with complaint of chest heaviness. Per patient, he woke up around 4 PM with chest heaviness with some chest pain, 8-9 out of 10 intensity, associated with left forearm and hand numbness, a ssociated with nausea/vomiting [2 times]. He states that his pain slowly subsided with good relief after nitroglycerin in the ED. At bedside, his chest heaviness was 0/10. Patient also complains of having similar symptoms in the past since last 3 to 4 years. The frequency has increased lately to once every 2 months. He has been diagnosed with unstable angina in the past and was prescribed aspirin with he has not taken. His echo in April 2020 showed ejection fraction of 60 to 65% with bicuspid aortic valve showing mild to moderate aortic stenosis. Per patient, he does not smoke tobacco, drink alcohol and use illegal drugs/marijuana. He is full code. Family history positive for GI malignancy. In the ED, he received nitro patch, aspirin 324 mg, Tylenol, Zofran. Principal Diagnosis ATYPICAL CHEST PAIN DIZZINESS, LIKELY VERTIGO Discharge Exam GENERAL: Alert and oriented x3. NAD, on RA. HEENT: No pallor, no icterus. Pupils equal, round and reactive to light. Oral mucosa moist. NECK: No JVD, no neck masses. HEART: S1 and S2 heard. Regular rate and rhythm. Midsystolic murmur 3/6 over aortic and pulmonic area, no gallop. RESPIRATORY SYSTEM: Normal AP diameter. No accessory muscle use. No wheezing, no crackles. ABDOMEN: Soft, bowel sounds present, nontender, no distention. CENTRAL NERVOUS SYSTEM: Alert and oriented x3. No facial droop. Speech is clear. Obeys simple commands. Moves extremities. EXTREMITIES: No edema, no erythema seen. Discharge Data Allergies Allergy/AdvReac Type Severity Reaction Status Date / Time bee venom protein (honey bee) AdvReac Severe Unknown Verified 10/23/20 16:54 Consultations 10/23/20 17:52 ED Decision to Admit Stat 10/23/20 19:55 Consult Cardiology Routine 10/24/20 11:45 Consult Cardiac Catheterization Routine Procedures Performed Operation Date: 10/24/20 12:30 Actual Procedures p Cath, Left with Cors and Vent - Reese Larsen MD s Cineradiography w/Routine Exam - Reese Larsen MD Ordered Studies 10/23/20 18:48 CT angio chest w con Stat Thyroid: Imaged portions of the thyroid gland are normal in size and attenuation. Thoracic aorta: There is mild aneurysmal dilatation of the ascending thoracic aorta which measures up to 4.2 cm in diameter. The remainder of the thoracic aorta is normal in caliber, and the arch demonstrates standard 3-vessel anatomy. No dissection is seen. The arch vessels are widely patent. Pulmonary vasculature: The pulmonary trunk is normal in caliber. There are no filling defects within the main, lobar, or segmental pulmonary arteries to suggest pulmonary embolus. Heart: The heart is top normal in size and without pericardial effusion. Lungs and pleural spaces: Evaluation of the lung parenchyma is modestly degraded by motion artifact. There is no airspace consolidation or pleural effusion. Atelectasis is seen at the lung bases. The trachea and central airways are clear. Mediastinum: There is no mediastinal lymphadenopathy. Pati: Clear. Axillae: There is no axillary lymphadenopathy. Upper abdomen: There is a tiny hiatal hernia. Partially visualized upper abdominal viscera is within normal limits. Skeletal structures: No lytic or blastic bony lesions are seen. IMPRESSION: 1. There is mild aneurysmal dilatation of the ascending thoracic aorta which measures up to 4.2 cm in diameter. 2. No dissection is seen. 3. There is no evidence of pulmonary embolus in the main, lobar, or segmental pulmonary arteries. 4. There is no airspace consolidation or pleural effusion. 5. Additional findings as above. 10/24/20 09:38 CT head/brain wo con Stat Brain parenchyma: The brain parenchyma is normal in appearance. There is no hemorrhage, mass effect, or evidence of acute territorial ischemia by CT criteria. Hooper-white matter differentiation is preserved. No extra-axial fluid collection is seen. Ventricles, sulci, cisterns: Normal in configuration. Intracranial vasculature: The visualized intracranial vasculature at the skull base is normal in appearance. Calvarium: Unremarkable. Sinuses and mastoids: The visualized paranasal sinuses are clear. There is trace left mastoid effusion. The right mastoid air cells are well pneumatized. Orbits: The bony orbits are grossly intact. IMPRESSION: No acute intracranial abnormality. 10/24/20 12:26 CL Cath Imgs for PACS use only Routine Hospital Course (1) Chest pain: Chest pain likely Musculoskeletal etiology ACS ruled out --- troponin x 3 negative EKG no signs of acute ischemia, (+) sinus rudolph Echo: mild concentric LVH, EF 50-55%, grade 2 diastolic dysfunction, congenital bicuspid aortic valve, mild to moderate hypokinesis of the mid to apical anteroseptal wall, moderate aortic stenosis -- [facility] consulted- Dr. Dorsey: Cardiac cath revealed normal coronary arteries. No cardiac source for chest pain found. s/p Cardiac cath 10/24/20 Codominant coronary system Nonobstructive disease involving D2 Normal left ventricular filling pressure 15 to 20 mm gradient across the aortic valve -- CT chest: no PE, Dissection; There is mild aneurysmal dilatation of the ascending thoracic aorta which measures up to 4.2 cm in diameter. ESR, CRP:normal -- chest pain reproducible on palpation -- d/c home with Aspirin 81mg daily ff up with [facility] for bicuspid aortic valve, ascending thoracic aorta aneurysm Dizziness, possible Vertigo -- occurs suddenly, occasionally associated with visual disturbance -- CT head: no acute abnormalities -- while admitted, relieved with PRN Meclizine -- PT ordered for [place]-Hallpike test: negative -- continue PRN Meclizine ff up with ENT possible referral to Neurologist History of AAA -- CT chest no dissection Congenital Bicuspid AV -- as per above History of Hep C Disposition d/c home ff up with PCP refer to ENT plan of care discussed with patient and his Veronica at the bedside in [facility] and at length all questions answered they are understanding, agreeable, comfortable with the plan of care Total Time Total Time Spent Total Time Spent (In Minutes): 50 minutes Discharge Plan Discharge Items Patient Disposition: Home - Self-Care Reason For Visit: CP Discharge Diagnosis: CHEST PAIN DIZZINESS, POSSIBLE VERTIGO Activity: As commented below Activity Comment: GRADUALLY TOLERATED Lifting: Wait until after follow-up appointment Exercise/Sports: Wait until after follow-up appointment Driving/Machine Use: NO DRIVING UNTIL RE-EVALUATED AND ALLOWED BY PRIMARY CARE PHYSICIAN Non-emergency contact: Primary Care Provider Call non-emergency contact if: you have any medication questions, your symptoms worsen, your pain is not controlled, your pain is worsening, your pain is unusual for you, your pain is concerning for you and you have a fever Follow-up/Referrals: Jagdeep Parker MD [Outside Practitioners] - (Date & Time 10/28/2020 10:40 AM Provider Jagdeep Parker MD Department [facility] ) Diet: Heart Healthy Addtl Attending Provider Instructions: PLEASE REVIEW YOUR NEW MEDICATION LIST AND FOLLOW INSTRUCTIONS CAREFULLY. YOUR NEW MEDICATIONS INCLUDE: MECLIZINE- NEEDED FOR DIZZINESS ASPIRIN- FOR PREVENTION OF HEART ATTACK, ALWAYS TAKE WITH FOOD CALL PRIMARY CARE PHYSICIAN OR RETURN TO THE ER IMMEDIATELY IF WITH WORSENING OF SYMPTOMS. FOLLOW UP WITH PRIMARY CARE PHYSICIAN SCHEDULED ABOVE. Pending Studies at Discharge: No Stand-Alone Forms: My ULTRA Testing, Smoking Cessation Medications and DC Order Prescriptions: New aspirin 81 mg Tablet,Delayed Release (Dr/Ec) 81 mg PO QAM Qty: 30 RF: 2 meclizine 12.5 mg Tablet 12.5 mg PO Q6H PRN (Reason: dizziness) Qty: 30 RF: 2 No Action No Known Home Medications RF: 0 Discharge Orders: Discharge Order (Routine); Ordered 10/25/20 Ordered By: Oseas Pham/Other Patient Handouts: Cardiac Catheterization Dc Admission Data Admit Date/Time: 10/24/20 16:00 Attending Provider: Oseas Jackson Admit Provider: Oseas Jackson Primary Care Provider: PCP,NO Other Providers: Shireen De Oliveira ; Thomas Malcolm ; Reese Larsen Other Interventions: Discharge Summary Assessment (RN) Last Done: 10/25/20 10:34
--- NOTE | 2020-10-25 15:27 | Electrocardiogram Report ---
Test Reason : Blood Pressure : / mmHG Vent. Rate : 061 BPM Atrial Rate : 061 BPM P-R Int : 184 ms QRS Dur : 092 ms QT Int : 426 ms P-R-T Axes : 044 018 021 degrees QTc Int : 428 ms Normal sinus rhythm Normal ECG When compared with ECG of 24-OCT-2020 09:14, No significant change was found Confirmed by Param Larsen ([id number]) on 10/25/2020 3:26:40 PM Referred By: REFERRED SELF Confirmed By:Zach Larsen
== END 2020-10-25 11:08 | disposition home or self-care (01) | DRG 287 ==
LOC: 2E 16:26 → ED 16:26 → SUATTDRO 18:15 → 2E 19:14
DX: I71.2 Thoracic aortic aneurysm, without rupture; I25.110 Atherosclerotic heart disease of native coronary artery with unstable angina pectoris; Z91.030 Bee allergy status; G44.40 Drug-induced headache, not elsewhere classified, not intractable; Z91.128 Patient's intentional underdosing of medication regimen for other reason; Q23.0 Congenital stenosis of aortic valve; R07.89 Other chest pain; T46.3X5A Adverse effect of coronary vasodilators, initial encounter; Z86.19 Personal history of other infectious and parasitic diseases; R42 Dizziness and giddiness